=== PATIENT | male | born 1980 | race American Indian/Alaskan Native ===

== ENCOUNTER 2021-08-23 20:32 | Emergency (ER) | payer OTHER ==
[2021-08-23] MEDS ORDERED: MORPHINE 4 MG/1 ML INJ IV ONE (21:27)
[2021-08-23] MEDS ORDERED: ONDANSETRON 4 MG/2 ML INJ IV ONE (21:27)
[2021-08-23] MEDS ORDERED: SODIUM CHLORIDE 0.9% 1000 ML 1,000 ML IV ONE (21:33)
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
--- NOTE | 2021-08-23 22:33 | XRay Report ---
Right knee INDICATION: Right knee pain IMPRESSION: No fracture or subluxation of the right knee is identified. Signer Name: Gurvinder Banuelos MD Signed: 08/23/2021 10:29 PM Workstation Name: [email or web address]
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
--- NOTE | 2021-08-23 22:34 | XRay Report ---
Right hip 2 views INDICATION: Right hip pain IMPRESSION: Mild degenerative changes of the right hip. No fracture or subluxation is identified. Signer Name: Gurvinder Banuelos MD Signed: 08/23/2021 10:29 PM Workstation Name: [email or web address]
--- NOTE | 2021-08-23 22:35 | XRay Report ---
Right ankle 2 views INDICATION: Right ankle pain IMPRESSION: No fracture or subluxation of the right ankle is identified. Signer Name: Gurvinder Banuelos MD Signed: 08/23/2021 10:31 PM Workstation Name: [email or web address]
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
[2021-08-23 23:13] LABS: Hemoglobin 15.7 gm/dl (11.8-15.2); Mean Corpuscular HGB Conc 33 % (32-34); Mean Corpuscular Volume 91 fl (84-94); Platelet Count 230 K/mm3 (140-440); Red Blood Count 5.19 M/mm3 (3.65-5.03); Red Cell Distribution Width 13.8 % (13.2-15.2)
[2021-08-23] MEDS ORDERED: BACITRACIN/POLYMYXIN B OINT 28.35 GM TP ONE (23:59)
[2021-08-24 00:04] LABS: Alanine Aminotransferase 25 units/L (7-56); Albumin 4.8 g/dL (3.9-5); BUN/Creatinine Ratio 16; Blood Urea Nitrogen 16 mg/dL (9-20); Calcium 10.4 mg/dL (8.4-10.2); Hemolysis Index 17
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
[2021-08-24] MEDS ORDERED: AMOXICILLIN/K CLAV 875/125MG TAB PO ONE (01:42)
[2021-08-24] MEDS ORDERED: LIDOCAINE (1%) 10 MG/1 ML VIAL 20 ML MDV INFILTRATI ONE (03:08)
[2021-08-24 03:19] VITALS: BP 135/94
[2021-08-24 03:53] LABS: Bilirubin,Urine NEG (Negative); Blood,Urine NEG (Negative); Color,Urine Yellow (Yellow); Protein,Urine <15 mg/dL mg/dL (Negative); Urobilinogen,Urine < 2.0 mg/dL (<2.0)
[2021-08-24 03:55] LABS: Mucus,Urine FEW /HPF
[2021-08-24 03:59] LABS: WBC,Urine < 1.0 /HPF (0.0-6.0)
== END 2021-08-24 03:31 | disposition home or self-care (01) ==
LOC: ED 20:32
DX: S91.312A Laceration without foreign body, left foot, initial encounter (principal); T14.8XXA Other injury of unspecified body region, initial encounter; R51.9 Headache, unspecified; R10.9 Unspecified abdominal pain; I10 Essential (primary) hypertension; F17.290 Nicotine dependence, other tobacco product, uncomplicated; V29.9XXA Motorcycle rider (driver) (passenger) injured in unspecified traffic accident, initial encounter; Y93.89 Activity, other specified; Y92.89 Other specified places as the place of occurrence of the external cause; Y99.8 Other external cause status
CPT/HCPCS: 12002; 36415; 70450; 71260; 72125; 73030; 73070; 73100; 73502; 73560; 73600; 73620; 74177; 80053; 81001; 82550; 83690; 84484; 85027; 96361; 96374; 96375; 99284; J2270; J2405; J7030; Q9967

== ENCOUNTER 2021-09-02 14:39 | Emergency (ER) | payer OTHER ==
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
[2021-09-02 15:23] VITALS: BP 128/64
== END 2021-09-02 15:40 | disposition home or self-care (01) ==
LOC: ED 14:39
DX: S91.311D Laceration without foreign body, right foot, subsequent encounter (principal); I10 Essential (primary) hypertension; Z98.890 Other specified postprocedural states; X58.XXXD Exposure to other specified factors, subsequent encounter
CPT/HCPCS: 99282